=== PATIENT | male | born 1950 | race Caucasian/White ===

== ENCOUNTER 2016-06-14 16:40 | Emergency (ER) | payer MEDICARE, OTHER | END 2016-06-14 18:03 | disposition home or self-care (01) | LOC: ED 16:40 | DX: M79.661 Pain in right lower leg (principal); M35.3 Polymyalgia rheumatica; D50.9 Iron deficiency anemia, unspecified ==

== ENCOUNTER 2016-07-28 18:40 | Emergency (ER) | payer MEDICARE, OTHER ==
[2016-07-28] MEDS ORDERED: PREDNISONE 20 MG TABLET ONE (20:45)
[2016-07-28] MEDS ORDERED: PREDNISONE 10 MG TABLET ONE (21:06)
[2016-07-28 21:08] LABS: ABSOLUTE NEUTROPHIL COUNT 6.1 K/mm3 (1.8-7.7); BASO # 0.1 K/mm3 (0.0-0.2); BASO % 0.6 % (0.2-1.0); EOS # 0.1 (0.0-0.5); EOS % 1.5 % (0.9-2.9); HEMOGLOBIN 12.4 gm/l (14.0-18.0); IMM NEUT% 0.1 % (0-1); LYMPH # 2.2 (1.0-4.8); LYMPH % 23.3 % (15-45); MEAN CELL VOLUME 86.9 fl (80.0-94.0); MEAN CORPUSCULAR HEMOGLOBIN 27.6 pg (27.0-31.0); MEAN CORPUSCULAR HGB CONC 31.8 g/dl (33.0-37.0); MEAN PLATELET VOLUME 9.3 fl (7.4-10.4); MONO # 0.8 (0.0-0.8); MONO % 8.8 % (4-12); NEUT % 65.7 % (43-75); PLATELET COUNT 359 K/mm3 (130-400); RED CELL DISTRIBUTION WIDTH 14.4 % (11.5-14.5)
[2016-07-28 21:10] LABS: ALB/GLOB RATIO 0.9 (>1.0); ALBUMIN 3.8 gm/dL (3.5-5.7); CALCIUM 9.8 mg/dL (8.6-10.3)
== END 2016-07-28 21:11 | disposition home or self-care (01) ==
LOC: ED 18:40
DX: M35.3 Polymyalgia rheumatica (principal); E78.5 Hyperlipidemia, unspecified
CPT/HCPCS: 85025; 82550; 80053; 85651; 99283 ×2; 36415; J7512 ×2